=== PATIENT | male | born 1955 | race Caucasian/White ===

== ENCOUNTER 2024-03-22 05:58 | Day surgery (SDC) | payer MEDICARE, BC ==
[2024-03-22] MEDS ORDERED: fentaNYL 100 MCG/2 ML SDV IV ONE (06:07)
[2024-03-22] MEDS ORDERED: Midazolam 1 MG/ML 2 ML SDV ONE (06:07)
[2024-03-22] MEDS ORDERED: Midazolam 1 MG/ML 2 ML SDV IV ONE (06:07)
[2024-03-22] MEDS ORDERED: fentaNYL 100 MCG/2 ML SDV ONE (06:07)
[2024-03-22] MEDS: Dextrose 5%-0.45% NaCl 1,000 ML IV SCH (06:15)
[2024-03-22] MEDS: Midazolam 1 MG/ML 2 ML SDV IV ONE ×6 (07:06→07:15)
[2024-03-22] MEDS: fentaNYL 100 MCG/2 ML SDV IV ONE ×2 (07:06)
== END 2024-03-22 08:44 | disposition home or self-care (01) ==
LOC: DL.ENDO 05:58
PROVIDERS: ATTEND Internal Medicine Gastroenterology
DX: Z12.11 Encounter for screening for malignant neoplasm of colon (principal); D12.2 Benign neoplasm of ascending colon; K57.30 Diverticulosis of large intestine without perforation or abscess without bleeding; E03.9 Hypothyroidism, unspecified; E78.5 Hyperlipidemia, unspecified; Z85.038 Personal history of other malignant neoplasm of large intestine
CPT/HCPCS: 45385; J2250; J3010; J7799; 88305